=== PATIENT | female | born 1975 | race Caucasian/White ===

== ENCOUNTER 2022-08-09 17:16 | Emergency (ER) | payer OTHER ==
[~2022-08-09] VITALS: Ht 162.6 cm; Wt 73.0 kg
[2022-08-09 17:19] VITALS: BP 132/75
[2022-08-09] MEDS ORDERED: TOPUD PO (17:26)
[2022-08-09] MEDS ORDERED: ALBU18HF2 IH (17:26)
[2022-08-09] MEDS ORDERED: VALA500T PO (17:26)
== END 2022-08-09 20:03 | disposition left against medical advice (07) ==
LOC: ER 17:53
DX: R06.02 Shortness of breath (principal)
CPT/HCPCS: 82962; 93005; 99283